=== PATIENT | female | born 1935 | race Caucasian/White ===

== ENCOUNTER 2018-05-30 13:57 | Emergency (ER) | payer MEDICARE ==
[~2018-05-30] VITALS: Ht 157.5 cm; Wt 55.3 kg
[~2018-05-30 13:57] MED LIST: ACTONEL150 MG PO; ADVAIR 250-501 EACH; ASPIRIN81 M1 PO; ATENOLOL100 MG PO; B 6 PO; B12; EVISTA60 MG PO; FISH OIL 1,0001 EAC2 PO; FLAX SEED OIL1 EACH PO; LEVOTHYROXINE50 MCG PO; LYSINE1000 MG PO; MULTIVITAMIN; ROPINIROLE HCL1 MG PO; SELENIUM200 MC1 PO; SPIRIVA18 MCG INH; VITAMIN C1000 M2 PO; VITAMIN E400 UNI3 PO; [UNRECOGNIZED DRUG - OTHER]
== END 2018-05-30 14:42 | disposition left against medical advice (07) ==
LOC: ER 13:57
DX: R19.7 Diarrhea, unspecified (principal)

== ENCOUNTER 2022-05-29 11:10 | Emergency (ER) | payer MEDICARE ==
[~2022-05-29] VITALS: Ht 157.5 cm; Wt 55.3 kg
[2022-05-29] MEDS ORDERED: SODIUM CHLORIDE FLUSH 10 ML SYR IV PRN (11:30)
[2022-05-29 11:45] LABS: BASOPHILS % 0.5 % (0.0-1.0); EOSINOPHILS # (AUTO) 0.1 (0.0-0.4); EOSINOPHILS % 1.4 % (0.0-6.0); HEMATOCRIT 34.6 % (34.2-44.1); HEMOGLOBIN 11.3 g/dL (12.0-16.0); LYMPHOCYTES # (AUTO) 1.6 (1.0-3.2); LYMPHOCYTES % 29.4 % (18.0-39.1); MEAN CORPUSCULAR HEMOGLOBIN 32.3 pg (28-32); MEAN CORPUSCULAR HGB CONC 32.7 g/dL (31-35); MEAN CORPUSCULAR VOLUME 98.9 fL (81-99); MONOCYTES # (AUTO) 0.6 (0.2-0.8); MONOCYTES % 10.5 % (4.4-11.3); NEUTROPHILS # (AUTO) 3.2 (2.1-6.9); NEUTROPHILS % 57.8 % (38.7-80.0); PLATELET COUNT 262 x10e3/uL (140-360); RED CELL DISTRIBUTION WIDTH 12.4 % (11.7-14.4)
[2022-05-29] MEDS ORDERED: SODIUM CHLORIDE 0.9% 1000ML 1,000 ML ONE (11:54)
[2022-05-29] MEDS ORDERED: SODIUM CHLORIDE 0.9% 500ML 500 ML IV ONE (12:00)
[2022-05-29 12:03] LABS: ALBUMIN 3.3 g/dL (3.5-5.0); ALBUMIN/GLOBULIN RATIO 1.1 (0.8-2.0); ANION GAP 10.4 mmol/L (8-16); CALCIUM 8.8 mg/dL (8.4-10.2); CREATININE, SERUM 1.01 mg/dL (0.57-1.11); POTASSIUM 4.4 mmol/L (3.5-5.1)
[2022-05-29 13:22] LABS: CLARITY,URINE CLEAR (CLEAR); COLOR,URINE YELLOW (YELLOW); KETONES,URINE NEGATIVE (NEGATIVE); LEUKOCYTE ESTERASE ,URINE SMALL (NEGATIVE); NITRITE,URINE NEGATIVE (NEGATIVE); PROTEIN,URINE DIPSTICK NEGATIVE (NEGATIVE); URINE UROBILINOGEN 0.2 mg/dL (0.2 - 1)
[2022-05-29 13:31] LABS: BACTERIA,URINE RARE /HPF; EPITHELIAL CELLS,URINE MODERATE /LPF; YEAST,URINE RARE
[2022-05-29 14:18] VITALS: BP 114/70
== END 2022-05-29 14:17 | disposition home or self-care (01) ==
LOC: ER 11:15
DX: R42 Dizziness and giddiness (principal); E86.0 Dehydration; I10 Essential (primary) hypertension; G25.81 Restless legs syndrome
CPT/HCPCS: 36415; 71045; 80053; 81001; 83880; 84484; 85025; 93005; 99284; J7030

== ENCOUNTER 2025-04-24 10:03 | Inpatient (IN) | payer MEDICARE ==
[~2025-04-24] VITALS: Ht 157.5 cm; Wt 55.3 kg
[2025-04-24] VITALS (7 sets, daily range): BP systolic 108–134; BP diastolic 48–74; PULSE 70–79; RESP 16–20; TEMP 97.8–98.4; O2SAT 96–100
[2025-04-24 10:57] LABS: BASOPHILS % 0.4 % (0.0-1.0); EOSINOPHILS % 1.3 % (0.0-6.0); LYMPHOCYTES % 10.8 % (18.0-39.1); MONOCYTES % 7.1 % (4.4-11.3); NEUTROPHILS % 80.2 % (38.7-80.0); RED CELL DISTRIBUTION WIDTH 12.8 % (11.7-14.4)
[2025-04-24 11:06] LABS: INR 0.89
[2025-04-24] MEDS: SODIUM CHLORIDE 0.9% 1000ML 1,000 ML IV STA (11:13)
[2025-04-24 11:19] LABS: EST GLOMERULAR FILTRATION RATE 66.0 ML/MIN (>=60)
[2025-04-24 12:08] LABS: LEUKOCYTE ESTERASE ,URINE MODERATE (NEGATIVE); PROTEIN,URINE DIPSTICK 2+ (NEGATIVE); URINE UROBILINOGEN 0.2 mg/dL (0.2 - 1)
[2025-04-24 12:10] LABS: EPITHELIAL CELLS,URINE MANY /LPF; WBC,URINE (MAN) 21-50 /HPF (0-5)
[2025-04-24] MEDS ORDERED: IOPAMIDOL 370 MG/ML 100 ML INFUS..BTL INJ ONE (12:46)
[2025-04-24] MEDS ORDERED: ONDANSETRON HCL INJ 2MG/ML 2ML 2 MG/ML VIAL IV PRN (13:00)
[2025-04-24] MEDS: METHYLPREDNISOLONE SOD SUCC 125 MG/2ML VIAL IV STA (13:08)
[2025-04-24] MEDS ORDERED: DEXTROSE 50% SYRINGE 50 ML IV PRN (15:45)
[2025-04-24] MEDS ORDERED: DOCUSATE SODIUM 100 MG CAP PO PRN (15:45)
[2025-04-24] MEDS ORDERED: POTASSIUM CHLORIDE 20 MEQ TAB CR PO PRN (15:45)
[2025-04-24] MEDS ORDERED: LIDOCAINE 4% PATCH TP PRN (15:45)
[2025-04-24] MEDS ORDERED: SIMETHICONE 80 MG CHEW PO PRN (15:45)
[2025-04-24] MEDS ORDERED: ACETAMINOPHEN 325 MG TAB PO PRN (15:45)
[2025-04-24] MEDS ORDERED: BENZONATATE 100 MG CAP PO PRN (15:45)
[2025-04-24] MEDS ORDERED: ALBUTEROL/IPRATROPIUM 3 ML NEB NEB PRN (15:45)
[2025-04-24] MEDS ORDERED: HYDRALAZINE HCL 20 MG/ML VIAL IV PRN (15:45)
[2025-04-24] MEDS: ENOXAPARIN SOD INJ 40 MG/0.4 ML SYR SC SCH (17:10)
[2025-04-24] MEDS: SODIUM CHLORIDE 0.9% 1000ML 1,000 ML IV SCH (17:10)
[2025-04-25] VITALS (7 sets, daily range): BP systolic 116–134; BP diastolic 58–74; PULSE 70–95; RESP 18–20; TEMP 97.8–98.3; O2SAT 96–100
[2025-04-25] MEDS: DICYCLOMINE HCL 20 MG TAB PO SCH (05:47)
[2025-04-25 05:53] LABS: BASOPHILS % 0.1 % (0.0-1.0); EOSINOPHILS % 0.0 % (0.0-6.0); LYMPHOCYTES % 6.9 % (18.0-39.1); MONOCYTES % 9.4 % (4.4-11.3); NEUTROPHILS % 83.3 % (38.7-80.0); RED CELL DISTRIBUTION WIDTH 12.9 % (11.7-14.4)
[2025-04-25 06:28] LABS: PHOSPHORUS 3.4 MG/DL (2.3-4.7)
[2025-04-25 06:31] LABS: EST GLOMERULAR FILTRATION RATE 70.0 ML/MIN (>=60)
[2025-04-25] MEDS: PANTOPRAZOLE SOD 40 MG TABEC PO SCH (09:29)
[2025-04-25] MEDS: DIPHENHYDRAMINE HCL 25 MG CAP PO PRN (09:29)
[2025-04-25] MEDS: MELATONIN 5 MG TABLET PO PRN (20:30)
[2025-04-26 02:49] LABS: % IRON SATURATION 35 % (15-50)
[2025-04-26 06:08] LABS: BASOPHILS % 0.5 % (0.0-1.0); EOSINOPHILS % 1.8 % (0.0-6.0); LYMPHOCYTES % 27.7 % (18.0-39.1); MONOCYTES % 10.0 % (4.4-11.3); NEUTROPHILS % 59.8 % (38.7-80.0); RED CELL DISTRIBUTION WIDTH 13.1 % (11.7-14.4)
[2025-04-26 06:49] LABS: EST GLOMERULAR FILTRATION RATE 73.0 ML/MIN (>=60)
[2025-04-26 07:57] VITALS: BP 140/67; PULSE 69; RESP 18; TEMP 98.1
[2025-04-26] MEDS: CYANOCOBALAMIN INJ 1,000 MCG/ML VIAL IM SCH (08:48)
[2025-04-26 09:00] VITALS: BP 140/67; PULSE 69; RESP 18; TEMP 98.1; O2SAT 98
[2025-04-26 12:08] VITALS: BP 153/67; PULSE 73; RESP 20; O2SAT 97
== END 2025-04-26 15:10 | disposition home or self-care (01) | DRG 690 ==
LOC: ER 10:08 → ERHOLD 12:54 → MED/SURG2 13:50
PROVIDERS: ADMIT Internal Medicine; ATTEND Internal Medicine
DX: N39.0 Urinary tract infection, site not specified (principal); D50.9 Iron deficiency anemia, unspecified; K52.9 Noninfective gastroenteritis and colitis, unspecified; E03.9 Hypothyroidism, unspecified; F03.90 Unspecified dementia, unspecified severity, without behavioral disturbance, psychotic disturbance, mood disturbance, and anxiety; R15.2 Fecal urgency; J44.9 Chronic obstructive pulmonary disease, unspecified; G25.81 Restless legs syndrome; F32.A Depression, unspecified; F41.9 Anxiety disorder, unspecified; Z79.82 Long term (current) use of aspirin; Z79.51 Long term (current) use of inhaled steroids; Z79.890 Hormone replacement therapy
CPT/HCPCS: 36415; 70450; 71045; 74177; 80048; 80053; 81001; 82550; 82607; 82746; 83540; 83630; 83690; 83735; 84100; 84443; 84466; 84484; 85025; 85045; 85610; 85730; 86140; 87045; 87086; 87186; 93005; 99252; 99284; J1650; J2470; J2543; J2919; J3420; J7030; Q9967